=== PATIENT | male | born 1945 | race Caucasian/White ===

== ENCOUNTER 2018-05-18 12:08 | Day surgery (SDC) | payer OTHER ==
[~2018-05-18 12:08] MED LIST: ADVAIR HFA 115/12 GM IH; JANUMET 50-1,01 EACH PO; NEURONTIN300 MG PO; SIMVASTATIN10 MG PO
== END 2018-05-18 16:15 | disposition home or self-care (01) ==
LOC: AMB-ENDOS 12:08
DX: K64.1 Second degree hemorrhoids (principal)